=== PATIENT | female | born 1975 | race Caucasian/White ===

== ENCOUNTER → 2022-08-27 | Outpatient (CLI) | payer OTHER ==
[2022-08-28 06:06] LABS: RUBEOLA (MEASLES) IGG >300.0 AU/mL (Immune >16.4)
[2022-08-29 11:06] LABS: QUANTIFERON, TB GOLD PLUS Negative (Negative)
== END | disposition home or self-care (01) ==
LOC: LABMN 11:26
PROVIDERS: ATTEND Internal Medicine
DX: Z02.1 Encounter for pre-employment examination (principal)
CPT/HCPCS: 86480; 86706; 86735; 86762; 86765; 86787

== ENCOUNTER → 2023-08-09 | Outpatient (CLI) | payer OTHER | END | disposition home or self-care (01) | LOC: LABMN 09:08 | PROVIDERS: ATTEND Internal Medicine | DX: Z02.1 Encounter for pre-employment examination (principal) | CPT/HCPCS: 86480 ==